=== PATIENT | female | born 1955 | race Caucasian/White ===

== ENCOUNTER → 2018-08-18 10:31 | Outpatient (CLI) | payer MEDICARE ==
[2016-03-18 06:46] VITALS: BMI 32.5
[~2018-08-18 10:31] MED LIST: PRILOSEC20 MG PO; SYMBICORT 16010.2 GM INH
== END | disposition home or self-care (01) ==
LOC: D.RT 08-02 11:00 → D.RAD 08-02 11:45 → D.RT 10:31
DX: J44.9 Chronic obstructive pulmonary disease, unspecified (principal)

== ENCOUNTER → 2018-12-18 09:03 | Outpatient (CLI) | payer MEDICARE ==
[2016-03-18 06:46] VITALS: BMI 32.5
== END | disposition home or self-care (01) ==
LOC: D.RT 09:00
DX: J45.909 Unspecified asthma, uncomplicated (principal)

== ENCOUNTER → 2019-03-08 07:24 | Outpatient (CLI) | payer MEDICARE ==
[2016-03-18 06:46] VITALS: BMI 32.5
== END | disposition home or self-care (01) ==
LOC: D.RT 01-02 09:00 → D.RAD 01-02 09:00 → D.RT 07:24
PROVIDERS: ATTEND Internal Medicine Pulmonary Disease
DX: J44.9 Chronic obstructive pulmonary disease, unspecified (principal)

== ENCOUNTER → 2019-04-02 07:38 | Outpatient (CLI) | payer MEDICARE ==
[2016-03-18 06:46] VITALS: BMI 32.5
== END | disposition home or self-care (01) ==
LOC: D.US 07:38
PROVIDERS: ATTEND Internal Medicine Cardiovascular Disease
DX: R60.9 Edema, unspecified (principal)

== ENCOUNTER → 2019-08-21 10:20 | Outpatient (CLI) | payer MEDICARE ==
[2016-03-18 06:46] VITALS: BMI 32.5
== END | disposition home or self-care (01) ==
LOC: D.RT 08-08 11:00 → D.CT 08-08 11:30 → D.RT 08-08 11:30
PROVIDERS: ATTEND Internal Medicine Pulmonary Disease
DX: R91.8 Other nonspecific abnormal finding of lung field (principal)

== ENCOUNTER → 2020-07-25 07:25 | Outpatient (CLI) | payer MEDICARE ==
[2016-03-18 06:46] VITALS: BMI 32.5
== END | disposition home or self-care (01) ==
LOC: D.LAB 07:25
PROVIDERS: ATTEND Internal Medicine Pulmonary Disease
DX: Z13.9 Encounter for screening, unspecified (principal)

== ENCOUNTER → 2020-07-28 09:04 | Outpatient (CLI) | payer MEDICARE ==
[2016-03-18 06:46] VITALS: BMI 32.5
== END | disposition home or self-care (01) ==
LOC: D.CT 07-02 11:00 → D.RT 07-02 11:30 → D.CT 08:00
PROVIDERS: ATTEND Internal Medicine Pulmonary Disease
DX: Z13.9 Encounter for screening, unspecified (principal); J45.909 Unspecified asthma, uncomplicated